=== PATIENT | male | born 1935 | race Caucasian/White ===

== ENCOUNTER 2022-03-04 00:39 | Inpatient (IN) ==
[2022-03-04] MEDS ORDERED: Ondansetron 4 MG/2 ML VIAL IVP ONE (00:47)
[2022-03-04] MEDS: 0.9 % Sodium Chloride 1,000 ML IVC SCH ×2 (01:06→12:31)
[2022-03-04 01:16] LABS: Basophils % 0.2 %; Eosinophils % 0.2 %; Hematocrit 51.8 % (37.5-50.1); Hemoglobin 17.4 g/dL (12.9-16.9); Immature Granulocytes % 0.4 % (0-4); Lymphocytes # 0.6 K/mcL (0.6-4.6); Lymphocytes % 5.8 %; Mean Corpuscular HGB Conc 33.6 g/dL (31.6-35.5); Mean Corpuscular Hemoglobin 32.8 pg (28.0-33.3); Mean Corpuscular Volume 97.7 fL (83.0-100.0); Mean Platelet Volume 10.2 fL (9.4-12.4); Monocytes # 0.6 K/mcL (0.0-1.3); Monocytes % 5.4 %; Neutrophils # 9.7 K/mcL (1.6-8.9); Platelet Count 137 K/mcL (140-400); Red Cell Distribution Width 11.9 % (11.5-14.5); White Blood Count 11.1 K/mcL (4.3-11.1)
[2022-03-04 01:30] LABS: Alanine Aminotransferase 16 Units/L (7-52); Albumin 4.1 g/dL (3.5-5.7); Albumin/Globulin Ratio 1.5 (1.1-2.2); Alkaline Phosphatase 107 Units/L (34-104); Aspartate Amino Transferase 20 Units/L (13-39); BUN/Creatinine Ratio 21 (6-26); Bilirubin,Direct 0.2 mg/dL (0.0-0.2); Bilirubin,Indirect 1.7 mg/dL (0.0-1.0); Bilirubin,Total 1.9 mg/dL (0.3-1.0); Blood Urea Nitrogen 23 mg/dL (8-23); Calcium 9.2 mg/dL (8.6-10.3); Carbon Dioxide 26 mEq/L (23-29); Chloride 105 mEq/L (98-107); Globulin 2.7 g/dL (2.4-3.5); Glucose 156 mg/dL (70-105); Osmolality,Calculated 299 (280-300); Potassium 3.9 mEq/L (3.5-5.1); Sodium 141 mEq/L (136-145); Total Protein 6.8 g/dL (6.4-8.9); Troponin I < 0.03 ng/mL (< 0.04); eGFR For African Americans > 60 (> 60); eGFR For Non-African Americans > 60 (> 60)
[2022-03-04 02:04] LABS: Influenza A PCR Negative (Negative); Influenza B PCR Negative (Negative); Resp. Syncytial Virus PCR Negative (Negative)
[2022-03-04 02:09] LABS: SARS-CoV-2 by PCR (In House) Negative (Negative)
[2022-03-04] MEDS ORDERED: Azithromycin 500 MG in 0.9 % Sodium Chloride 250 ML IVPB ONE (02:13)
[2022-03-04] MEDS ORDERED: cefTRIAXone 2,000 MG in 0.9 % Sodium Chloride 20 ML IVP ONE (03:00)
[2022-03-04 03:16] LABS: Bilirubin,Urine Negative (Negative); Blood,Urine Negative (Negative); Clarity,Urine Clear (Clear); Color,Urine Yellow (Yellow); Glucose,Urine (UA) Normal (Normal); Ketones,Urine Negative (Negative); Leukocyte Esterase,Urine Negative (Negative); Nitrite,Urine Negative (Negative); Protein,Urine Trace mg/dL (Neg-Trace); Urobilinogen,Urine Normal (Normal)
[2022-03-04] MEDS ORDERED: Ondansetron 4 MG/2 ML VIAL IVP PRN (04:17)
[2022-03-04] MEDS ORDERED: Acetaminophen 325 MG TABLET PO PRN (04:17)
[2022-03-04] MEDS ORDERED: Naloxone 0.4 MG/ML INJ IVP PRN (04:17)
[2022-03-04] MEDS ORDERED: Ipratropium/Albuterol Neb 3 ML IH PRN (04:22)
[2022-03-04] MEDS ORDERED: Isovue-370 500 ML BOTTLE IVP ONE (05:43)
[2022-03-04 05:44] LABS: INR 1.2
[2022-03-04] MEDS ORDERED: Gadolinium Contrast Agent (WT Based) IV PRN (07:33)
[2022-03-04 07:52] LABS: Adenovirus Not Detected (Not Detect); Bordetella Pertussis Not Detected (Not Detect); Chlamydophila pneumoniae Not Detected (Not Detect); Coronavirus 229E Not Detected (Not Detect); Coronavirus HKU1 Not Detected (Not Detect); Coronavirus NL63 Not Detected (Not Detect); Coronavirus OC43 Not Detected (Not Detect); Human Metapneumovirus Not Detected (Not Detect); Human Rhinovirus/Enterovirus Not Detected (Not Detect); Influenza A Subtype 2009 H1 Not Detected (Not Detect); Influenza B Not Detected (Not Detect); Mycoplasma pneumoniae Not Detected (Not Detect); Parainfluenza Virus 1 Not Detected (Not Detect); Parainfluenza Virus 2 Not Detected (Not Detect); Parainfluenza Virus 3 Not Detected (Not Detect); Parainfluenza Virus 4 Not Detected (Not Detect); Respiratory Syncytial Virus Not Detected (Not Detect); SARS-CoV-2 Not Detected (Not Detect)
[2022-03-04] MEDS ORDERED: GADOBUTROL 30 MMOL/30 ML VIAL IVP ONE (09:46)
[2022-03-04] MEDS: *HR* Enoxaparin 40 MG/0.4 ML SYRINGE SQ SCH (14:41)
[2022-03-05 02:01] LABS: Basophils % 0.1 %; Mean Corpuscular Volume 99.8 fL (83.0-100.0)
[2022-03-05 02:03] LABS: Eosinophils # 0.1 K/mcL (0.0-0.6); Eosinophils % 0.9 %; Hematocrit 41.7 % (37.5-50.1); Hemoglobin 13.8 g/dL (12.9-16.9); Immature Granulocytes % 0.4 % (0-4); Immature Platelets 3.1 % (1.1-6.1); Lymphocytes # 1.4 K/mcL (0.6-4.6); Lymphocytes % 9.7 %; Mean Corpuscular HGB Conc 33.1 g/dL (31.6-35.5); Monocytes # 1.5 K/mcL (0.0-1.3); Monocytes % 10.3 %; Neutrophils # 11.1 K/mcL (1.6-8.9); Platelet Count 114 K/mcL (140-400); Red Blood Count 4.18 M/mcL (4.19-5.50); Red Cell Distribution Width 12.2 % (11.5-14.5); Segmented Neutrophils % 78.6 %; White Blood Count 14.1 K/mcL (4.3-11.1)
[2022-03-05 02:12] LABS: Alanine Aminotransferase 16 Units/L (7-52); Albumin/Globulin Ratio 1.3 (1.1-2.2); Alkaline Phosphatase 73 Units/L (34-104); Aspartate Amino Transferase 37 Units/L (13-39); BUN/Creatinine Ratio 23 (6-26); Blood Urea Nitrogen 24 mg/dL (8-23); Calcium 8.4 mg/dL (8.6-10.3); Carbon Dioxide 28 mEq/L (23-29); Chloride 107 mEq/L (98-107); Globulin 2.4 g/dL (2.4-3.5); Glucose 94 mg/dL (70-105); Osmolality,Calculated 294 (280-300); Potassium 4.4 mEq/L (3.5-5.1); Sodium 140 mEq/L (136-145); Total Protein 5.4 g/dL (6.4-8.9); eGFR For African Americans > 60 (> 60); eGFR For Non-African Americans > 60 (> 60)
[2022-03-05] MEDS: 0.9 % Sodium Chloride 1,000 ML IVC SCH ×2 (02:29→09:28)
[2022-03-05 03:14] LABS: Platelet Estimate Slight Decrease (Normal)
[2022-03-05 08:49] LABS: Hematocrit 44.8 % (37.5-50.1); Hemoglobin 14.8 g/dL (12.9-16.9); Mean Corpuscular Hemoglobin 33.3 pg (28.0-33.3); Mean Corpuscular Volume 100.7 fL (83.0-100.0); Mean Platelet Volume 10.3 fL (9.4-12.4); Platelet Count 107 K/mcL (140-400); Red Blood Count 4.45 M/mcL (4.19-5.50); Red Cell Distribution Width 12.4 % (11.5-14.5)
[2022-03-05] MEDS: cefTRIAXone 1,000 MG in 0.9 % Sodium Chloride Mini Bag 100 ML IVPB SCH (09:27)
[2022-03-05] MEDS ORDERED: *HR* Metoprolol 5 MG/5 ML VIAL IVP PRN (10:22)
[2022-03-05] MEDS: lisinopriL 20 MG TABLET PO SCH ×2 (10:50→21:30)
[2022-03-05] MEDS: Azithromycin 500 MG in 0.9 % Sodium Chloride 250 ML IVPB SCH (10:53)
[2022-03-05 11:49] LABS: Bilirubin,Urine Negative (Negative); Blood,Urine Negative (Negative); Clarity,Urine Clear (Clear); Color,Urine Light-Yellow (Yellow); Glucose,Urine (UA) Normal (Normal); Ketones,Urine Negative (Negative); Leukocyte Esterase,Urine Negative (Negative); Nitrite,Urine Negative (Negative); PH,Urine 6.5 pH Units (5.0-8.0); Protein,Urine Negative (Neg-Trace); Specific Gravity,Urine 1.016 (1.010-1.025); Urobilinogen,Urine Normal (Normal)
[2022-03-05] MEDS: *HR* Enoxaparin 40 MG/0.4 ML SYRINGE SQ SCH (17:52)
[2022-03-06 01:45] LABS: Hematocrit 45.9 % (37.5-50.1); Hemoglobin 15.1 g/dL (12.9-16.9); Immature Granulocytes % 0.4 % (0-4); Immature Platelets 3.4 % (1.1-6.1); Lymphocytes % 7.2 %; Mean Corpuscular HGB Conc 32.9 g/dL (31.6-35.5); Mean Corpuscular Volume 100.4 fL (83.0-100.0); Mean Platelet Volume 10.1 fL (9.4-12.4); Monocytes % 9.8 %; Platelet Count 106 K/mcL (140-400); Red Blood Count 4.57 M/mcL (4.19-5.50); Red Cell Distribution Width 12.3 % (11.5-14.5); Segmented Neutrophils % 80.8 %; White Blood Count 12.9 K/mcL (4.3-11.1)
[2022-03-06 01:46] LABS: Basophils % 0.2 %; Eosinophils # 0.2 K/mcL (0.0-0.6); Eosinophils % 1.6 %; Lymphocytes # 0.9 K/mcL (0.6-4.6); Monocytes # 1.3 K/mcL (0.0-1.3); Neutrophils # 10.4 K/mcL (1.6-8.9)
[2022-03-06 02:10] LABS: Alanine Aminotransferase 20 Units/L (7-52); Alkaline Phosphatase 87 Units/L (34-104); Aspartate Amino Transferase 42 Units/L (13-39); BUN/Creatinine Ratio 20 (6-26); Bilirubin,Total 1.7 mg/dL (0.3-1.0); Blood Urea Nitrogen 19 mg/dL (8-23); Calcium 8.6 mg/dL (8.6-10.3); Carbon Dioxide 28 mEq/L (23-29); Chloride 105 mEq/L (98-107); Glucose 119 mg/dL (70-105); Osmolality,Calculated 291 (280-300); Potassium 4.8 mEq/L (3.5-5.1); Sodium 139 mEq/L (136-145); eGFR For African Americans > 60 (> 60); eGFR For Non-African Americans > 60 (> 60)
[2022-03-06] MEDS: 0.9 % Sodium Chloride 1,000 ML IVC SCH (03:32)
[2022-03-06] MEDS: cefTRIAXone 1,000 MG in 0.9 % Sodium Chloride Mini Bag 100 ML IVPB SCH (07:27)
[2022-03-06] MEDS: lisinopriL 20 MG TABLET PO SCH ×2 (07:28→21:19)
[2022-03-06] MEDS: Azithromycin 500 MG in 0.9 % Sodium Chloride 250 ML IVPB SCH (10:53)
[2022-03-06] MEDS ORDERED: Perflutren Lipid Microsphere 1.3 ML in 0.9 % Sodium Chloride 8.7 ML IVP PRN (12:46)
[2022-03-06] MEDS: *HR* Enoxaparin 40 MG/0.4 ML SYRINGE SQ SCH (15:58)
[2022-03-07 01:13] LABS: Basophils % 0.3 %; Eosinophils # 0.4 K/mcL (0.0-0.6); Eosinophils % 3.6 %; Hematocrit 42.3 % (37.5-50.1); Hemoglobin 14.3 g/dL (12.9-16.9); Immature Granulocytes % 0.4 % (0-4); Lymphocytes # 1.1 K/mcL (0.6-4.6); Lymphocytes % 10.8 %; Mean Corpuscular HGB Conc 33.8 g/dL (31.6-35.5); Mean Corpuscular Hemoglobin 33.6 pg (28.0-33.3); Mean Corpuscular Volume 99.5 fL (83.0-100.0); Mean Platelet Volume 10.2 fL (9.4-12.4); Monocytes # 1.1 K/mcL (0.0-1.3); Monocytes % 10.9 %; Neutrophils # 7.6 K/mcL (1.6-8.9); Platelet Count 109 K/mcL (140-400); Red Blood Count 4.25 M/mcL (4.19-5.50); Red Cell Distribution Width 12.2 % (11.5-14.5); White Blood Count 10.3 K/mcL (4.3-11.1)
[2022-03-07] MEDS: lisinopriL 20 MG TABLET PO SCH (07:47)
[2022-03-07] MEDS: cefTRIAXone 1,000 MG in 0.9 % Sodium Chloride Mini Bag 100 ML IVPB SCH (07:47)
[2022-03-07 08:22] VITALS: BP 183/64; PULSE 70; TEMP 98.4
[2022-03-07] MEDS: Azithromycin 500 MG in 0.9 % Sodium Chloride 250 ML IVPB SCH (08:53)
[2022-03-07 09:40] LABS: Kappa Qnt Free Light Chains 20.01 mg/L (3.30-19.40); Lambda Qnt Free Light Chains 15.56 mg/L (5.71-26.30)
[2022-03-07 11:20] VITALS: O2SAT 94
== END 2022-03-07 12:20 | disposition home health service (06) | DRG 871 ==
LOC: 2NENU 00:39 → EMEROOARM 00:39 → 2NENU 04:59 → SUATTDRO 22:42
PROVIDERS: ADMIT Internal Medicine; ATTEND Family Medicine